=== PATIENT | male | born 1965 | race Caucasian/White ===

== ENCOUNTER → 2016-12-11 | Outpatient (CLI) | payer MEDICAID ==
[~2016-12-11] MED LIST: AC500T PO; ATENOLO; CYCL10TA45 PO
--- NOTE | 2016-12-11 12:21 | Diagnostic Imaging Report ---
EXAMINATION: Fluoroscopic double contrast upper GI exam with small bowel follow-through. DATE: December 11, 2016. INDICATION: A 51-year-old male, history of gastroesophageal reflux disease. COMPARISON: None. FINDINGS: There are no identified abnormal tertiary contractions of the esophagus. There is no identified esophageal stricture or mass. The esophageal mucosa is unremarkable in appearance. There is a moderate-sized hiatal hernia. Gastroesophageal reflux is noted during the course of the exam. The gastric mucosa is unremarkable in appearance. There is prompt passage of contrast from the small bowel into the colon. There is no identified abnormal fold thickening of small bowel loops or otherwise identified fluoroscopic abnormality of the small bowel. There is a peripherally calcified mass in the spleen radiographically noted which is also seen on comparison CT chest of November 26, 2009. This is not specific in etiology although it is most likely benign. IMPRESSION: 1. Moderate-sized hiatal hernia. 2. Gastroesophageal reflux. 3. No identified esophageal stricture or mass. Unremarkable appearance of the esophageal mucosa. 4. Unremarkable appearance of the gastric mucosa. 5. No identified small bowel abnormality. Dictated by: Dictated on workstation # [id number]
== END ==
LOC: RAD 08:59
PROVIDERS: ATTEND Family Medicine
DX: K21.9 Gastro-esophageal reflux disease without esophagitis (principal); K44.9 Diaphragmatic hernia without obstruction or gangrene
CPT/HCPCS: 74249